=== PATIENT | female | born 1940 | race Caucasian/White ===

== ENCOUNTER 2020-08-21 10:40 | Inpatient (IN) ==
[~2020-08-21 10:40] MED LIST: ASPIRIN 325 MG TABLET PO ONE; DIAZEPAM 5 MG TABLET PO ONE; MAGNESIUM SULF RIDER 2 GM in PREMIX 1 EACH IV PRN; POTASSIUM CHLORIDE RIDER 10 MEQ in PREMIX 1 EACH IV PRN; diphenhydrAMINE CAP 50 MG CAPSULE PO ONE
[2020-08-21] MEDS: SODIUM CHLORIDE 0.9% 1,000 ML IV SCH ×2 (11:45→17:20)
[2020-08-21] MEDS ORDERED: ASPIRIN 325 MG TABLET ONE (12:00)
[2020-08-21] MEDS ORDERED: DIAZEPAM 5 MG TABLET ONE (12:00)
[2020-08-21] MEDS ORDERED: diphenhydrAMINE CAP 50 MG CAPSULE ONE (12:00)
[2020-08-21] MEDS ORDERED: HYDROmorphone 2 MG/1 ML VIAL ONE (13:11)
[2020-08-21] MEDS ORDERED: MIDAZOLAM 2 MG/2 ML VIAL ONE (13:11)
[2020-08-21] MEDS ORDERED: LIDOCAINE 1% 20 ML VIAL ONE (13:11)
[2020-08-21] MEDS ORDERED: HEPARIN 5,000 UNIT/1 ML VIAL ONE (13:42)
[2020-08-21] MEDS ORDERED: NITROGLYCERIN DRIP 50 MG/250 ML BOTTLE IV ONE (14:40)
[2020-08-21] MEDS ORDERED: LABETALOL 20 MG/4 ML SYRINGE IV ONE ×2 (14:41→14:50)
[2020-08-21] MEDS ORDERED: hydrALAZINE 20 MG/1 ML VIAL ONE (14:56)
[2020-08-21] MEDS ORDERED: CLOPIDOGREL 300 MG TABLET ONE (15:02)
[2020-08-21] MEDS ORDERED: ACETAMINOPHEN 500 MG TABLET PO PRN (15:33)
[2020-08-21] MEDS: NITROGLYCERIN 2% OINT 1 INCH/GM PACK TOP SCH ×2 (16:15→17:20)
[2020-08-21] MEDS: amLODIPine 5 MG TABLET PO SCH (16:54)
[2020-08-21 17:59] LABS: Troponin I 0.233 NG/ML (0.00-0.045)
[2020-08-21] MEDS: ROSUVASTATIN 20 MG TABLET PO SCH (20:26)
[2020-08-21] MEDS: POTASSIUM GLUCONATE PO SCH (20:27)
[2020-08-21] MEDS: carvediloL 12.5 MG TABLET PO SCH (20:27)
[2020-08-22] MEDS: NITROGLYCERIN 2% OINT 1 INCH/GM PACK TOP SCH ×5 (00:05→23:47)
[2020-08-22 05:16] LABS: CKMB % 7.8 %
[2020-08-22 05:23] LABS: Troponin I 24.3 NG/ML (0.00-0.045)
[2020-08-22] MEDS: LEVOTHYROXINE 75 MCG TABLET PO SCH (05:39)
[2020-08-22] MEDS: SODIUM CHLORIDE 0.9% 1,000 ML IV SCH ×4 (05:47→23:47)
[2020-08-22] MEDS ORDERED: ENOXAPARIN 60 MG/0.6 ML SYRINGE SUBCUT ONE (08:32)
[2020-08-22] MEDS ORDERED: NITROGLYCERIN DRIP 50 MG/250 ML BOTTLE IV PRN (08:32)
[2020-08-22] MEDS ORDERED: MORPHINE 4 MG/1 ML VIAL IV PRN (08:40)
[2020-08-22] MEDS: CLOPIDOGREL 75 MG TABLET PO SCH (08:48)
[2020-08-22] MEDS: ASPIRIN EC 81 MG TABLET PO SCH (08:48)
[2020-08-22] MEDS: EZETIMIBE 10 MG TABLET PO SCH (08:49)
[2020-08-22] MEDS: amLODIPine 5 MG TABLET PO SCH (08:49)
[2020-08-22] MEDS: carvediloL 12.5 MG TABLET PO SCH ×2 (08:49→20:26)
[2020-08-22 08:58] LABS: Basophils % 0.2 % (0.0-0.8); Hematocrit 33.8 VOL% (35.7-47.0); Immature Granulocytes % 0.5 %; Immature Granulocytes Absolute 0.06 #; Lymphocytes # 0.8 10*3/uL (1.4-4.0); Lymphocytes % 6.4 % (21.3-54.2); Mean Corpuscular HGB Conc 32.5 GM/DL (32-36); Mean Corpuscular Volume 94.4 FL (87-102); Mean Platelet Volume 9.2 FL (9.6-12.0); Monocytes % 3.7 % (1.7-12.7); Neutrophils % 89.2 % (38.7-73.9); Platelet Count 197 T/CUMM (130-400); Red Blood Count 3.58 MC/CUMM (3.8-5.5); Red Cell Distribution Width 13.8 % (9.3-17.3)
[2020-08-22 09:15] LABS: Calcium 8.6 MG/DL (8.5-10.1); Osmolality,Calculated 266.7 MOS/KG (273-304); Potassium 3.9 MMOL/L (3.5-5.1)
[2020-08-22] MEDS: POTASSIUM GLUCONATE PO SCH ×2 (09:36→20:26)
[2020-08-22 10:04] LABS: CKMB % 7.6 %
[2020-08-22 10:06] LABS: Troponin I 41.2 NG/ML (0.00-0.045)
[2020-08-22] MEDS ORDERED: TIROFIBAN 0 MCG in PREMIX 1 EACH IV ONE (11:33)
[2020-08-22] MEDS ORDERED: TIROFIBAN 5,000 MCG/100 ML PREMIX IV SCH (12:00)
[2020-08-22] MEDS ORDERED: POTASSIUM CHLORIDE RIDER 10 MEQ in PREMIX 1 EACH IV PRN (12:13)
[2020-08-22] MEDS ORDERED: diphenhydrAMINE CAP 25 MG CAPSULE PO ONE (12:13)
[2020-08-22] MEDS ORDERED: DIAZEPAM 5 MG TABLET PO ONE (12:13)
[2020-08-22] MEDS ORDERED: MAGNESIUM SULF RIDER 2 GM in PREMIX 1 EACH IV PRN (12:13)
[2020-08-22 12:24] LABS: CKMB % 7.5 %
[2020-08-22 12:28] LABS: Troponin I 41.3 NG/ML (0.00-0.045)
[2020-08-22] MEDS ORDERED: MIDAZOLAM 2 MG/2 ML VIAL ONE (12:40)
[2020-08-22] MEDS ORDERED: HYDROmorphone 2 MG/1 ML VIAL ONE (12:40)
[2020-08-22] MEDS ORDERED: ISOSORBIDE MONONITRATE 30 MG TABLET PO ONE (14:19)
[2020-08-22] MEDS ORDERED: LIDOCAINE 1% 20 ML VIAL ONE (14:39)
[2020-08-22] MEDS: RANOLAZINE 500 MG TABLET PO SCH ×2 (15:06→20:26)
[2020-08-22 15:49] LABS: CKMB % 7.2 %; Troponin I 40.5 NG/ML (0.00-0.045)
[2020-08-22 18:33] LABS: CKMB % 6.9 %
[2020-08-22 18:43] LABS: Troponin I 43.5 NG/ML (0.00-0.045)
[2020-08-22] MEDS: ROSUVASTATIN 20 MG TABLET PO SCH (20:26)
[2020-08-22 21:21] LABS: CKMB % 6.7 %
[2020-08-22 21:22] LABS: Troponin I 38.9 NG/ML (0.00-0.045)
[2020-08-23] MEDS: NITROGLYCERIN 2% OINT 1 INCH/GM PACK TOP SCH ×4 (05:20→23:10)
[2020-08-23] MEDS: LEVOTHYROXINE 75 MCG TABLET PO SCH (06:08)
[2020-08-23 07:29] LABS: Basophils % 0.5 % (0.0-0.8); Eosinophils % 0.3 % (0.00-10.9); Hematocrit 31.2 VOL% (35.7-47.0); Hemoglobin 10.2 GM/DL (12.0-16.0); Immature Granulocytes % 0.6 %; Immature Granulocytes Absolute 0.04 #; Lymphocytes # 0.7 10*3/uL (1.4-4.0); Lymphocytes % 11.4 % (21.3-54.2); Mean Corpuscular HGB Conc 32.7 GM/DL (32-36); Mean Corpuscular Volume 94.5 FL (87-102); Mean Platelet Volume 9.4 FL (9.6-12.0); Neutrophils % 79.2 % (38.7-73.9); Platelet Count 162 T/CUMM (130-400); Red Cell Distribution Width 13.6 % (9.3-17.3); White Blood Count 6.4 T/CUMM (4-12)
[2020-08-23 07:38] LABS: Calcium 8.1 MG/DL (8.5-10.1); Osmolality,Calculated 268.2 MOS/KG (273-304); Potassium 4.2 MMOL/L (3.5-5.1)
[2020-08-23] MEDS: RANOLAZINE 500 MG TABLET PO SCH ×2 (08:46→20:37)
[2020-08-23] MEDS: EZETIMIBE 10 MG TABLET PO SCH (08:46)
[2020-08-23] MEDS: CLOPIDOGREL 75 MG TABLET PO SCH (08:46)
[2020-08-23] MEDS: ASPIRIN EC 81 MG TABLET PO SCH (08:46)
[2020-08-23] MEDS: amLODIPine 5 MG TABLET PO SCH (08:47)
[2020-08-23] MEDS: carvediloL 12.5 MG TABLET PO SCH ×2 (08:47→20:38)
[2020-08-23] MEDS: ISOSORBIDE MONONITRATE 30 MG TABLET PO SCH (09:01)
[2020-08-23] MEDS: POTASSIUM GLUCONATE PO SCH ×2 (09:02→20:38)
[2020-08-23] MEDS: SODIUM CHLORIDE 0.9% 1,000 ML IV SCH ×2 (11:25→20:00)
[2020-08-23] MEDS: ROSUVASTATIN 20 MG TABLET PO SCH (20:38)
[2020-08-24] MEDS: LEVOTHYROXINE 75 MCG TABLET PO SCH (05:57)
[2020-08-24] MEDS: SODIUM CHLORIDE 0.9% 1,000 ML IV SCH ×2 (05:57→16:34)
[2020-08-24] MEDS: NITROGLYCERIN 2% OINT 1 INCH/GM PACK TOP SCH ×3 (05:57→18:10)
[2020-08-24] MEDS: CLOPIDOGREL 75 MG TABLET PO SCH (08:22)
[2020-08-24] MEDS: ISOSORBIDE MONONITRATE 30 MG TABLET PO SCH (08:22)
[2020-08-24] MEDS: carvediloL 12.5 MG TABLET PO SCH ×2 (08:22→20:28)
[2020-08-24] MEDS: amLODIPine 5 MG TABLET PO SCH (08:22)
[2020-08-24] MEDS: RANOLAZINE 500 MG TABLET PO SCH ×2 (08:23→20:29)
[2020-08-24] MEDS: ASPIRIN EC 81 MG TABLET PO SCH (08:23)
[2020-08-24] MEDS: EZETIMIBE 10 MG TABLET PO SCH (08:23)
[2020-08-24] MEDS: POTASSIUM GLUCONATE PO SCH ×2 (09:02→20:30)
[2020-08-24] MEDS: ROSUVASTATIN 20 MG TABLET PO SCH (20:28)
[2020-08-25] MEDS: NITROGLYCERIN 2% OINT 1 INCH/GM PACK TOP SCH ×2 (01:18→06:08)
[2020-08-25] MEDS: LEVOTHYROXINE 75 MCG TABLET PO SCH (06:27)
[2020-08-25 08:27] VITALS: BP 114/50
[2020-08-25] MEDS: carvediloL 12.5 MG TABLET PO SCH (09:37)
[2020-08-25] MEDS: ASPIRIN EC 81 MG TABLET PO SCH (09:37)
[2020-08-25] MEDS: amLODIPine 5 MG TABLET PO SCH (09:37)
[2020-08-25] MEDS: RANOLAZINE 500 MG TABLET PO SCH (09:37)
[2020-08-25] MEDS: CLOPIDOGREL 75 MG TABLET PO SCH (09:37)
[2020-08-25] MEDS: ISOSORBIDE MONONITRATE 30 MG TABLET PO SCH (09:38)
[2020-08-25] MEDS: EZETIMIBE 10 MG TABLET PO SCH (09:38)
[2020-08-25] MEDS: POTASSIUM GLUCONATE PO SCH (09:42)
== END 2020-08-25 11:06 | disposition home or self-care (01) | DRG 246 ==
LOC: N.CL 10:40 → N.TELEN 15:28 → N.CC 08-22 09:00 → N.TELEN 08-23 14:01
PROVIDERS: ADMIT Internal Medicine Cardiovascular Disease; ATTEND Internal Medicine Cardiovascular Disease
PROC: CLCCHCL (ICD-10-PCS; 2020-08-22 12:45)